=== PATIENT | female | born 1945 | race Caucasian/White ===

== ENCOUNTER 2021-04-30 13:08 | Inpatient (IN) | payer OTHER ==
[~2021-04-30] VITALS: Ht 165.1 cm; Wt 81.6 kg
[2021-04-30] MEDS ORDERED: LABETALOL HCL 5 MG/ML 4ML SYRINGE IV ONE (13:45)
[2021-04-30 14:14] LABS: Basophils # (auto) 0.1 10 ^3/uL (0-0.2); Basophils % (auto) 0.6 % (0.0-2.0); Eosinophils # (auto) 0.1 10 ^3/uL (0-0.8); Eosinophils % (auto) 0.9 % (0.0-7.0); Hematocrit 44.6 % (36.0-46.0); Lymphocytes # (auto) 2.6 10 ^3/uL (0.4-5.4); Lymphocytes % (auto) 31.8 % (10.0-50.0); Mean Corpuscular Hemoglobin 27.6 pg (28.0-32.0); Mean Corpuscular Hgb Conc. 33.7 g/dL (32.0-36.0); Monocytes # (auto) 0.5 10 ^3/uL (0-1.3); Monocytes % (auto) 5.5 % (0.0-12.0); Neutrophils # (auto) 5.1 10 ^3/uL (1.6-8.6); Neutrophils % (auto) 61.2 % (37.0-80.0); Nucleated Red Blood Cells % 0.1 %; Red Blood Cells 5.43 10^6/uL (4.0-5.20); Red Cell Distribution Width 14.9 % (11.8-14.3); White Blood Cell 8.3 10^3/uL (4.4-10.8)
[2021-04-30 14:29] LABS: Calcium 9.7 mg/dL (8.5-10.1); Potassium 3.6 mmol/L (3.5-5.1)
[2021-04-30 14:31] LABS: BUN/Creatinine Ratio 21.5
[2021-04-30 14:34] LABS: INR 0.97 (0.9-1.15); Partial Thromboplastin Time 24.9 sec (23.6-33.0)
[2021-04-30 14:35] LABS: Bilirubin, Total 0.3 mg/dL (0.2-1.0); Total Protein 8.5 g/dL (6.4-8.2)
[2021-04-30] MEDS ORDERED: hydrALAZINE HCL 20 MG/ML VL IV ONE (14:45)
[2021-04-30 15:14] LABS: Urine Bacteria NONE SEEN /hpf (None Seen); Urine Blood Negative /uL (Negative); Urine Specific Gravity 1.013 (1.001-1.035); Urine WBC 55 /hpf (0 - 5)
[2021-04-30] MEDS ORDERED: ACETAMINOPHEN 325 MG TAB PO PRN ×2 (16:30)
[2021-04-30] MEDS ORDERED: TEMAZEPAM 15 MG CAP PO PRN (16:30)
[2021-04-30] MEDS ORDERED: MORPHINE SULFATE 4 MG/ML SYR/VIAL IV PRN (16:30)
[2021-04-30] MEDS ORDERED: HYDROcodone-ACET 5/325MG TAB PO PRN (16:30)
[2021-04-30] MEDS ORDERED: NITROGLYCERIN 0.4 MG SL TAB SL PRN (16:30)
[2021-04-30] MEDS ORDERED: DOCUSATE SOD 100 MG CAP PO PRN (16:30)
[2021-04-30] MEDS ORDERED: ONDANSETRON HCL 4 MG/2 ML VIAL IV PRN (16:30)
[2021-04-30 16:58] LABS: Cholesterol 324 mg/dL (< 200); Triglycerides 291 mg/dL (< 150)
[2021-04-30 17:01] LABS: HDL Cholesterol 48 mg/dL (40-59); LDL Cholesterol 218 mg/dL (< 100)
[2021-04-30] MEDS ORDERED: LACTATED RINGER'S 1,000 ML IV SCH (17:30)
[2021-04-30] MEDS ORDERED: ALBUTEROL SULF 2.5 MG/0.5ML(0.5%) NEB SOLN NEB PRN (17:30)
[2021-04-30] MEDS ORDERED: IPRATROPIUM BROM 0.5 MG/2.5ML INH SOL NEB PRN (17:30)
[2021-04-30] MEDS ORDERED: MORPHINE SULFATE INJECTION 2 MG/ML SYRG IV PRN (17:45)
[2021-04-30 20:05] LABS: INR 0.99 (0.9-1.15)
[2021-04-30] MEDS ORDERED: dilTIAZem 125mg/125ml BAG KIT 125 ML IV SCH (22:00)
[2021-04-30] MEDS ORDERED: LABETALOL HCL 5 MG/ML 4ML SYRINGE IV PRN (22:00)
[2021-04-30] MEDS ORDERED: SODIUM CHLOR 0.9% PF (SALINE LOCK) 10ML VIAL/SYR IV SCH (22:00)
[2021-04-30] MEDS ORDERED: ATORVASTATIN 20 MG TAB PO SCH ×2 (22:00)
[2021-05-01] MEDS ORDERED: ACETAMINOPHEN 325 MG TAB PO PRN (01:45)
[2021-05-01] MEDS ORDERED: LACTATED RINGER'S 1,000 ML IV SCH (02:45)
[2021-05-01] MEDS ORDERED: CLOPIDOGREL BISULFATE 75 MG TAB PO ONE ×2 (07:45)
[2021-05-01] MEDS ORDERED: LORazepam 2MG/ML-1ML VIAL IV PRN (08:00)
[2021-05-01] MEDS ORDERED: ASPirin 81 mg TAB PO ONE (08:00)
[2021-05-01 08:45] VITALS: BP 142/76
[2021-05-01] MEDS ORDERED: cefTRIAXone 1GM/50ML D5W 50 ML IV SCH (09:00)
[2021-05-01] MEDS ORDERED: ASPirin 81 mg TAB PO SCH (10:00)
[2021-05-01] MEDS ORDERED: ENOXAPARIN SOD 40 MG/0.4 ML SYRINGE SC SCH (10:00)
[2021-05-01] MEDS ORDERED: FAMOTIDINE 20 MG TAB PO SCH (10:00)
== END 2021-05-01 08:50 | disposition short-term general hospital (02) | DRG 65 ==
LOC: ER 13:08 → EDBD 13:08 → OVERFLOW 16:17
PROVIDERS: ADMIT Registered Nurse; ATTEND Hospitalist
DX: I63.9 Cerebral infarction, unspecified (principal); I67.4 Hypertensive encephalopathy; I16.1 Hypertensive emergency; N39.0 Urinary tract infection, site not specified; H53.462 Homonymous bilateral field defects, left side; H91.90 Unspecified hearing loss, unspecified ear; Z20.822 Contact with and (suspected) exposure to COVID-19; I10 Essential (primary) hypertension; Z79.82 Long term (current) use of aspirin; Z79.899 Other long term (current) drug therapy; Z91.14 Patient's other noncompliance with medication regimen
CPT/HCPCS: 36415; 70450; 71045; 80053; 80061; 81001; 83036; 83880; 84443; 84484; 85025; 85610; 85730; 87426; 93306; 93886; 96365; 96367; 96375; G0378; J3490